=== PATIENT | male | born 1955 | race Asian ===

== ENCOUNTER 2018-02-23 06:01 | Day surgery (SDC) | payer OTHER ==
[2018-02-23 06:54] VITALS: BMI 22.4
--- NOTE | 2018-02-23 07:35 | HP ---
Admitting History and Physical - Admission History of Present Illness: Patient is a 63 y/o male with a past medical history of scizo-affective disorder , hypertension, DM, and GERD. [facility]. Patient speaks cantanosse and uzbek. Patient is a poor historian and his brother (health care proxy) is at the bedside providing history. His brother reports patient has struggled with scizo-affective disorder throughout his whole adult life and within the past year his symptoms has worsened. Including his current medication regimen has been infective and recent weight loss due to lack of appetite. As a results, patient was referred for ect. Brother denies any recent illnesses. History Source: Patient Limitations to Obtaining History: No Limitations - Past Surgical History Past Surgical History: Yes: None - Advance Directives Advance Directives: Yes: Health Care Proxy - Smoking History Smoking history: Unknown if ever smoked - Alcohol/Substance Use Hx Alcohol Use: No History of Substance Use: reports: None - Social History Usual Living Arrangement: Yes: Other (resides at [facility]) ADL: Independent Home Medications - Allergies Allergies/Adverse Reactions: Allergies Allergy/AdvReac Type Severity Reaction Status Date / Time chlorpromazine Allergy Unknown Verified 02/27/17 13:20 erythromycin base Allergy Unknown Verified 02/27/17 13:19 ketoconazole Allergy Unknown Verified 02/27/17 13:19 - Home Medications Home Medications: Ambulatory Orders Ammonium Lactate Lotion [Lac-Hydrin 12% Lotion -] 1 applic TP BID 02/23/18 Benztropine Mesylate 2 mg PO BID 02/23/18 Clotrimazole [Lotrimin 1% Solution -] 1 applic TP BID 02/23/18 Clozapine 425 mg PO BID 02/23/18 Docusate Sodium 100 mg PO BID 02/23/18 Gabapentin 900 mg PO TID 02/23/18 Hydrochlorothiazide 50 mg PO DAILY 02/23/18 Insulin Lispro [Admelog Solostar] 100 unit SQ ASDIR PRN 02/23/18 Lactulose (Oral Use) [Cephulac -] 20 gm PO TID 02/23/18 Levothyroxine [Synthroid -] 50 mcg PO DAILY 02/23/18 Linagliptin [Tradjenta] 5 mg PO DAILY 02/23/18 Omeprazole 20 mg PO DAILY 02/23/18 Family Disease History - Family Disease History Family History: Denies Review of Systems Findings/Remarks: limited secondary to poor historian - Review of Systems Constitutional: reports: Unintentional Wgt. Loss Physical Examination Vital Signs: Vital Signs Temperature 98.2 F 02/23/18 06:38 Pulse Rate 100 H 02/23/18 06:38 Respiratory Rate 16 02/23/18 06:38 Blood Pressure 139/82 02/23/18 06:38 O2 Sat by Pulse Oximetry (%) 98 02/23/18 06:38 Constitutional: Yes: Well Nourished, No Distress, Thin Eyes: Yes: WNL, Conjunctiva Clear, EOM Intact HENT: Yes: WNL, Atraumatic, Normocephalic Neck: Yes: WNL, Supple, Trachea Midline Cardiovascular: Yes: WNL, Regular Rate and Rhythm, S1, S2 Respiratory: Yes: WNL, Regular, CTA Bilaterally Gastrointestinal: Yes: WNL, Normal Bowel Sounds, Soft ...Rectal Exam: Yes: Deferred Renal/: Yes: WNL Breast(s): Yes: WNL Musculoskeletal: Yes: WNL Extremities: Yes: WNL Edema: No Peripheral Pulses WNL: Yes Peripheral Pulses: Left Radial: 4+, Right Radial: 4+, Left Doralis Pedis: 3+, Right Dorsalis Pedis: 3+, Left Femoral: 3+, Right Femoral: 3+ Integumentary: Yes: WNL Neurological: Yes: WNL, Alert, Oriented ...Motor Strength: WNL Psychiatric: Yes: WNL, Alert, Oriented Labs: reviewer 01/17 Imaging - Results EKG: Other (nsr) Assessment/Plan patient is a 63 y/o male that presents for ect labs and ekg reviewed patient is medically optimized for procedure informed consent, risks/benefits to be obtained by Dr Bundy
[2018-02-23] MEDS ORDERED: KETAMINE HCL 500 MG/10 ML VIAL ONE (08:01)
[2018-02-23 08:57] VITALS: TEMP 97.8
[2018-02-23 11:43] VITALS: BP 138/76; PULSE 94
== END 2018-02-23 09:30 ==
LOC: FECT 06:01
PROVIDERS: ATTEND Psychiatry & Neurology Psychiatry
PROC: GZB4ZZZ Other Electroconvulsive Therapy (ICD-10-PCS; principal; 2018-02-23 07:15)
DX: F25.9 Schizoaffective disorder, unspecified (principal); I10 Essential (primary) hypertension; E11.9 Type 2 diabetes mellitus without complications; K21.9 Gastro-esophageal reflux disease without esophagitis
CPT/HCPCS: 82962; 90870; 94760

== ENCOUNTER 2018-02-26 05:38 | Day surgery (SDC) | payer OTHER ==
[2018-02-23 11:58] VITALS: BMI 22.4
[2018-02-26] MEDS ORDERED: oxyCODONE HCL 5 MG TABLET PO PRN ×2 (06:42)
[2018-02-26] MEDS ORDERED: KETAMINE HCL 500 MG/10 ML VIAL ONE (06:56)
[2018-02-26 08:36] VITALS: TEMP 97.8
[2018-02-26 09:08] VITALS: BP 139/87; PULSE 82
== END 2018-02-26 09:00 | disposition home or self-care (01) ==
LOC: FECT 05:38
PROVIDERS: ATTEND Psychiatry & Neurology Psychiatry
PROC: GZB4ZZZ Other Electroconvulsive Therapy (ICD-10-PCS; principal; 2018-02-26 07:15)
DX: F25.1 Schizoaffective disorder, depressive type (principal)
CPT/HCPCS: 82962; 90870; 94760

== ENCOUNTER 2018-02-27 05:41 | Day surgery (SDC) | payer OTHER ==
[2018-02-23 12:07] VITALS: BMI 22.4
[2018-02-27] MEDS ORDERED: LACTATED RINGERS SOLUTION 1,000 ML IV SCH (07:30)
[2018-02-27 09:29] VITALS: TEMP 97.5
[2018-02-27 09:30] VITALS: BP 134/79; PULSE 84
== END 2018-02-27 09:30 ==
LOC: FECT 05:41
PROVIDERS: ATTEND Psychiatry & Neurology Psychiatry
PROC: GZB4ZZZ Other Electroconvulsive Therapy (ICD-10-PCS; principal; 2018-02-27 07:00)
DX: F25.1 Schizoaffective disorder, depressive type (principal)
CPT/HCPCS: 90870; 94760

== ENCOUNTER 2018-03-02 05:40 | Day surgery (SDC) | payer OTHER ==
[2018-02-24 12:31] VITALS: BMI 22.4
[2018-03-02 07:21] VITALS: TEMP 98.6
[2018-03-02] MEDS ORDERED: KETAMINE HCL 500 MG/10 ML VIAL ONE (07:38)
[2018-03-02 09:19] VITALS: BP 140/79; PULSE 88
== END 2018-03-02 09:20 ==
LOC: FECT 05:40
PROVIDERS: ATTEND Psychiatry & Neurology Psychiatry
PROC: GZB4ZZZ Other Electroconvulsive Therapy (ICD-10-PCS; principal; 2018-03-02 07:30)
DX: F25.1 Schizoaffective disorder, depressive type (principal)
CPT/HCPCS: 90870; 94760